=== PATIENT | female | born 2000 | race American Indian/Alaskan Native ===

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

== ENCOUNTER 2018-07-22 19:51 | Outpatient (CLI) | payer MEDICAID ==
[2018-07-22 20:44] VITALS: BP 124/72
[2018-07-22] MEDS ORDERED: LACTATED RINGERS 1,000 ML IV ONE (20:44)
[2018-07-22 22:02] LABS: Bilirubin,Urine NEG (Negative); Blood,Urine NEG (Negative); Color,Urine Yellow (Yellow); Mucus,Urine FEW /HPF; Protein,Urine <15 mg/dL mg/dL (Negative); Urobilinogen,Urine < 2.0 mg/dL (<2.0); WBC,Urine < 1.0 /HPF (0.0-6.0)
== END 2018-07-23 | disposition home or self-care (01) ==
LOC: TRG 19:51
PROVIDERS: ATTEND Obstetrics & Gynecology
DX: O26.893 Other specified pregnancy related conditions, third trimester (principal); R10.30 Lower abdominal pain, unspecified; O47.03 False labor before 37 completed weeks of gestation, third trimester; Z67.41 Type O blood, Rh negative; Z3A.36 36 weeks gestation of pregnancy
CPT/HCPCS: 59025; 81001; 86850; 86900; 86901; 96372; J2790; J7120

== ENCOUNTER 2018-08-12 12:52 | Inpatient (IN) | payer MEDICAID ==
[2018-08-12] MEDS ORDERED: BRETHINE IVP PRN (13:42)
[2018-08-12] MEDS ORDERED: MINERAL OIL PO PRN (13:42)
[2018-08-12] MEDS ORDERED: BRETHINE SUB-Q PRN (13:42)
[2018-08-12] MEDS ORDERED: STADOL IV PRN (13:42)
--- NOTE | 2018-08-12 13:42 | History and Physical Report ---
History of Present Illness Date of examination: 08/12/18 Date of admission: 08/12/18 13:11 Chief complaint: "Here for my injection" History of present illness: 18yo G 1 P 0 at 38 weeks 5 days here for penicillin injection that was ordered on 08/08/18. After review of the patient's records from [place] & consultation with Dr. Murdock adequate treatment was already done. She reports +FMs but denies UCs, VB or LOF. 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 She denies prodromal symptoms or any recent outbreak). Her care was co-managed with [facility] and [place]. 04/26/18: Pt seen at [place] and diagnosed with primary syphilis. She received one injection of Bacillin 2.4 million units IM at [facility] as recommended for primary syphilis. Initial titer on 02/28/18 was 1:32; repeat titer post treatment on 06/02/18 was 1:16 with +TPA. No subsequent titers done. 08/06/18: Pt seen at [facility] - EFW 2311g at 2% (IUGR), STACEY 9.82cm, BPP 8/8, Placenta Grade 1. S/D ratio 2.16. IOL @ 38-39 wks recommended 08/08/18: Pt seen at [facility] - STACEY 6.75cm (borderline oligohydamnios), BPP 6/8 (-2 STACEY), S/D ratio 2.14 Labs: O neg, Antibody Screen neg, RI, HBsAg neg, HIV neg, , HSV2 +, MSAFP neg, Diabetes Screen 98, GC/CT/Trich on 07/13/18 neg, GBS neg. 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 denies: smoking, alcohol abuse, prescription drug abuse, IV drug use - Obstetrical History Expected Date of Delivery: 08/21/18 Actual Gestation: 38 Week(s) 6 Day(s) : 1 Para: 0 Hx # Term Pregnancies: 0 Number of Pregnancies: 0 Spontaneous Abortions: 0 Induced : 0 Number of Living Children: 0 Medications and Allergies Allergies Allergy/AdvReac Type Severity Reaction Status Date / Time latex Allergy Severe Hives Verified 08/12/18 13:27 Home Medications Medication Instructions Recorded Confirmed Last Taken Type Cyclobenzaprine HCl [Flexeril 5 MG 5 mg PO TID #14 tablet 07/13/15 Unknown Rx TAB] Ibuprofen [Motrin] 600 mg PO Q8H PRN #30 tablet 07/13/15 Unknown Rx traMADol [Ultram 50 MG tab] 50 mg PO Q6HR PRN #14 tablet 07/16/16 Unknown Rx Acetaminophen [Tylenol] 325 mg PO Q6H #30 capsule 12/24/17 Unknown Rx Doxylamine Succinate/Vit B6 2 each PO QHS #30 tablet. 12/24/17 Unknown Rx [Diclegis 10-10 mg Tablet] Pnv No.95/Ferrous Fum/Folic AC 1 each PO DAILY #40 tablet 12/24/17 Unknown Rx [ Vitamin Tablet] Review of Systems All systems: negative - Vital Signs Vital signs: Vital Signs Temp Pulse Resp BP 96.7 F L 81 20 116/70 08/12/18 13:27 08/12/18 13:27 08/12/18 13:27 08/12/18 13:27 Temp Pulse Resp BP Pulse Ox 96.7 F L 81 20 116/70 08/12/18 13:27 08/12/18 13:28 08/12/18 13:27 08/12/18 13:28 - Physical Exam Abdomen: Positive: normal appearance, soft Genitourinary (Female): Positive: normal external genitalia, normal perenium. Negative: perineal/vulvar lesions Vulva: both: normal Vagina: Positive: normal moisture - Obstetrical FHR: auscultation normal, category 1 Uterine Contraction Monitor Mode: External Cervical Dilatation: 0.5 Cervical Effacement Percentage: 20 station: -3 Uterine Contraction Pattern: Irregular Results Result Diagrams: 08/12/18 14:10 All other labs normal. Assessment and Plan - Patient Problems (1) 38 weeks gestation of Current Visit: Yes Status: Acute (2) Intrauterine growth restriction (IUGR) affecting care of mother, third trimester, single gestation Current Visit: Yes Status: Acute Plan to address problem: Last growth scan 08/06: EFW 2311 g, 2% (3) Oligohydramnios in third trimester Current Visit: Yes Status: Acute Qualifiers: Fetus number: single or unspecified fetus Qualified Code(s): O41.03X0 - Oligohydramnios, third trimester, not applicable or unspecified Plan to address problem: Last STACEY on 08/08 was 6.75 cm (4) History of maternal syphilis, currently Current Visit: Yes Status: Acute Plan to address problem: s/p treatment with Bacillin 2.4 million units IM x1 RPR, NICU Consult ordered (5) Rh negative status during Current Visit: Yes Status: Acute Qualifiers: Trimester: third trimester Qualified Code(s): O26.893 - Other specified related conditions, third trimester; Z67.91 - Unspecified blood type, Rh negative Plan to address problem: s/p Rhogam Injection Repeat Rhogam injection PP (6) Encounter for induction of labor Current Visit: Yes Status: Acute Plan to address problem: Admit to L&D with routine labor orders Cervidil for cervical ripening Plan of care discussed with Dr. Murdock Anticipate vaginal delivery
[2018-08-12] MEDS ORDERED: PITOCin/NS 20 UNIT/1000ML DRIP 20 UNITS/1,000 ML BAG IV SCH (14:00)
[2018-08-12] MEDS ORDERED: XYLOCAINE 2% INFILTRATI ONE (14:00)
[2018-08-12] MEDS: LACTATED RINGERS 1,000 ML IV SCH (14:15)
[2018-08-12 14:24] LABS: Hematocrit 36.9 % (30.3-42.9); Hemoglobin 12.4 gm/dl (10.1-14.3); Mean Corpuscular HGB Conc 34 % (30-34); Mean Corpuscular Volume 93 fl (79-97); Platelet Count 273 K/mm3 (140-440); Red Blood Count 3.98 M/mm3 (3.65-5.03)
[2018-08-12] MEDS ORDERED: CERVIDIL VG ONE (14:42)
[2018-08-12] MEDS ORDERED: REGLAN IV ONE (18:19)
--- NOTE | 2018-08-12 18:30 | Consultation ---
Consult Note - Parent Education I met with parent(s) and discussed the following:: Need for NICU admission, Poss ible need for umbilical lines Parent(s) demonstrated understanding of all the information:: Yes Additional Comment: Met with mother at the request of OB team. Mother was recently diagnosed with Syphillis and got 1 dose of Penicillin in April/May and is getting her 2nd dose today. I explained to mother that baby needed to be admitted to the NICU for evaluation and treatment. Baby will get bloodwork and a spinal tap and then 10 days of IV penicillin (May need a UVC). Mother understands and is in agreement with plan of care. Assessment and Plan - Assessment Gestation:: 38 (IOL) Baby's gender: Female Baby's name: Wilner Barrett - Plan Plan: Admit baby to NICU after delivery Will send CBCd, RPR and CSF for protein, cell count and VDRL Please call NICU with questions
--- NOTE | 2018-08-13 09:10 | Progress Note ---
Assessment and Plan - Patient Problems (1) Encounter for induction of labor Current Visit: Yes Status: Acute Plan to address problem: Continue routine labor orders Initiate cytotec 25 mcg q 4 hrs vaginal as tolerated Pain meds as desired (2) Intrauterine growth restriction (IUGR) affecting care of mother, third trimester, single gestation Current Visit: Yes Status: Acute (3) Oligohydramnios in third trimester Current Visit: Yes Status: Acute Qualifiers: Fetus number: single or unspecified fetus Qualified Code(s): O41.03X0 - Oligohydramnios, third trimester, not applicable or unspecified (4) Rh negative status during Current Visit: Yes Status: Acute Qualifiers: Trimester: third trimester Qualified Code(s): O26.893 - Other specified related conditions, third trimester; Z67.91 - Unspecified blood type, Rh negative Subjective - Subjective Date of service: 08/13/18 (902) Principal diagnosis: IOL secondary to IUGR; Oligohydramnious Interval history: See admission H & P and OB progress notes Patient reports: movement normal, other (Just took shower and ate bkft, feeling well) Objective - Vital Signs Vital Signs: Vital Signs - 12hr 08/12/18 08/12/18 08/12/18 21:18 23:24 23:38 Temperature 98.3 F Pulse Rate 77 64 Respiratory 18 Rate Blood Pressure 125/72 135/76 08/13/18 08/13/18 08/13/18 03:03 04:29 07:41 Temperature Pulse Rate 60 94 H 75 Respiratory Rate Blood Pressure 134/76 126/79 126/65 08/13/18 07:58 Temperature 98.4 F Pulse Rate Respiratory 16 Rate Blood Pressure - Exam Breasts: deferred Cardiovascular: Regular rate Lungs: Normal air movement Abdomen: Present: other (gravid) Uterus: Present: other (S<D) FHR: category 1 Uterine Contraction Monitor Mode: External Cervical Dilatation: 0 (soft) Uterine Contraction Pattern: Irregular Uterine Tone Measurement Phase: Resting Extremities: normal Deep Tendon Reflex Grade: Normal +2 - Labs Labs: Laboratory Results - last 24 hr 08/12/18 08/12/18 14:10 14:10 WBC 8.0 RBC 3.98 Hgb 12.4 Hct 36.9 MCV 93 MCH 31 MCHC 34 RDW 14.0 Plt Count 273 Blood Type O NEGATIVE Antibody Screen Positive Antibody Identification Anti-D (Passively Aquired)
[2018-08-13] MEDS: CYTOTEC VG PRN (09:30)
[2018-08-13] MEDS ORDERED: CERVIDIL VG ONE (14:06)
[2018-08-13] MEDS: LACTATED RINGERS 1,000 ML IV SCH (17:39)
--- NOTE | 2018-08-13 19:00 | Progress Note ---
Assessment and Plan - Patient Problems (1) Encounter for induction of labor Current Visit: Yes Status: Acute Plan to address problem: Continue routine labor orders Cytotec d/c after one dose, cervix remained closed Second cervidil was placed at 1500, remove after 12 hrs Pain meds as desired (2) Intrauterine growth restriction (IUGR) affecting care of mother, third trimester, single gestation Current Visit: Yes Status: Acute (3) Oligohydramnios in third trimester Current Visit: Yes Status: Acute Qualifiers: Fetus number: single or unspecified fetus Qualified Code(s): O41.03X0 - Oligohydramnios, third trimester, not applicable or unspecified (4) Rh negative status during Current Visit: Yes Status: Acute Qualifiers: Trimester: third trimester Qualified Code(s): O26.893 - Other specified related conditions, third trimester; Z67.91 - Unspecified blood type, Rh negative Subjective - Subjective Date of service: 08/13/18 Principal diagnosis: IOL secondary to IUGR; Oligohydramnious Interval history: See admission H & P and OB progress notes Patient reports: movement normal, other (Resting quietly, reports irregular ctxs that are tolerable) Objective - Vital Signs Vital Signs: Vital Signs - 12hr 08/13/18 08/13/18 08/13/18 07:41 07:58 11:38 Temperature 98.4 F Pulse Rate 75 79 Respiratory 16 Rate Blood Pressure 126/65 110/55 Blood Pressure [Right] 08/13/18 08/13/18 12:00 15:46 Temperature 97.8 F 97.7 F Pulse Rate 88 Respiratory 16 20 Rate Blood Pressure 111/72 Blood Pressure 111/72 [Right] - Exam Breasts: deferred Cardiovascular: Regular rate Lungs: Normal air movement Abdomen: Present: other (gravid) FHR: category 1 Uterine Contraction Monitor Mode: External Uterine Contraction Pattern: Irregular Uterine Tone Measurement Phase: Resting Uterine Contraction Intensity: Mild (Second cervidil in place since 1500) Extremities: normal Deep Tendon Reflex Grade: Normal +2 - Labs Labs: Laboratory Results - last 24 hr 08/12/18 14:10 RPR Titer 1:8 RPR Reactive
[2018-08-14] MEDS: LACTATED RINGERS 1,000 ML IV SCH ×2 (08:20→17:31)
[2018-08-14] MEDS: CYTOTEC VG PRN (10:10)
--- NOTE | 2018-08-14 10:17 | Progress Note ---
Assessment and Plan A: IUP @ 39 1/7 Weeks IUGR Oligo +RPR Category I Tracing GBS Negative P: Cytotec 25mcg intravaginally Subjective - Subjective Date of service: 08/14/18 Principal diagnosis: IOL secondary to IUGR; Oligohydramnious Patient reports: movement normal, other (Resting quietly, reports irregular ctxs that are tolerable) Objective - Vital Signs Vital Signs: Vital Signs - 12hr 08/14/18 08/14/18 08/14/18 04:59 07:34 07:36 Temperature 98.3 F Pulse Rate 86 91 H Respiratory 16 Rate Blood Pressure 127/61 132/58 08/14/18 08/14/18 08/14/18 08:00 09:00 10:09 Temperature Pulse Rate 81 64 75 Respiratory Rate Blood Pressure 116/65 114/59 123/76 - Exam Breasts: normal Cardiovascular: Regular rate Abdomen: Present: normal appearance FHR: category 1 Uterine Contraction Monitor Mode: External Cervical Dilatation: 0 Uterine Contraction Pattern: Absent Uterine Tone Measurement Phase: Resting - Labs Labs: Laboratory Results - last 24 hr 08/12/18 14:10 RPR Titer 1:8 RPR Reactive
[2018-08-14] MEDS ORDERED: PITOCin/NS 30 UNIT/500ML 30,000 MILLIUNITS/500 ML BAG IV ONE (14:06)
[2018-08-14] MEDS: SUBLIMAZE IV PRN ×2 (14:08→18:40)
--- NOTE | 2018-08-14 14:08 | Progress Note ---
Assessment and Plan A: IUP @ 39 1/7 Weeks IUGR Oligo +RPR Category I Tracing GBS Negative P: Start low dose Pitocin Subjective - Subjective Date of service: 08/14/18 Principal diagnosis: IOL secondary to IUGR; Oligohydramnious Patient reports: vaginal bleeding, movement normal, other (Resting quietly) Objective - Vital Signs Vital Signs: Vital Signs - 12hr 08/14/18 08/14/18 08/14/18 04:59 07:34 07:36 Temperature 98.3 F Pulse Rate 86 91 H Respiratory 16 Rate Blood Pressure 127/61 132/58 08/14/18 08/14/18 08/14/18 08:00 09:00 10:09 Temperature Pulse Rate 81 64 75 Respiratory Rate Blood Pressure 116/65 114/59 123/76 08/14/18 11:01 Temperature Pulse Rate 65 Respiratory Rate Blood Pressure 117/55 - Exam Breasts: normal Cardiovascular: Regular rate Lungs: Clear to auscultation, Normal air movement Abdomen: Present: normal appearance, soft, normal bowel sounds Uterus: Present: normal, firm, fundal height above umbilicus FHR: category 1 Uterine Contraction Monitor Mode: External Cervical Dilatation: 1 (VTX, Intact) Cervical Effacement Percentage: 20 station: -3 Uterine Contraction Pattern: Irregular Uterine Tone Measurement Phase: Resting Uterine Contraction Intensity: Mild Extremities: normal - Labs Labs: Laboratory Results - last 24 hr 08/12/18 14:10 RPR Titer 1:8 RPR Reactive
[2018-08-14] MEDS ORDERED: PITOCin/NS 30 UNIT/500ML 30 UNITS/500 ML BAG IV SCH (15:00)
[2018-08-14] MEDS ORDERED: NACL 0.9% 1000 ML 1,000 ML ONE (15:18)
[2018-08-14] MEDS ORDERED: MORPHINE ONE (17:06)
[2018-08-14] MEDS ORDERED: NARCAN 2 MG/2 ML IV PRN (21:18)
--- NOTE | 2018-08-14 21:18 | Anesthesia Consultation ---
Anesthesia Consult and Med Hx Date of service: 08/14/18 - Airway Anesthetic Teeth Evaluation: Good ROM Head & Neck: Adequate Mental/Hyoid Distance: Adequate Mallampati Class: Class II Intubation Access Assessment: Probably Good - Pulmonary Exam CTA: Yes - Cardiac Exam Cardiac Exam: RRR - Pre-Operative Health Status ASA Pre-Surgery Classification: ASA2 Proposed Anesthetic Plan: Epidural - Pulmonary Hx Smoking: No Hx Asthma: No Hx Respiratory Symptoms: No SOB: No COPD: No Home Oxygen Therapy: No Hx Pneumonia: No Hx Sleep Apnea: No - Cardiovascular System Hx Hypertension: No Hx Coronary Artery Disease: No Hx Heart Attack/AMI: No Hx Angina: No Hx Percutaneous Transluminal Coronary Angioplasty (PTCA): No Hx Cardia Arrhythmia: No Hx Pacemaker: No Hx Internal Defibrillator: No Hx Valvular Heart Disease: No Hx Heart Murmur: No Hx Peripheral Vascular Disease: No - Central Nervous System Hx Neuromuscular Disorder: No Hx Seizures: No CVA: No Hx Back Pain: No Hx Psychiatric Problems: No - Gastrointestinal Hx Ulcer: No Hx Gastroesophageal Reflux Disease: Yes - Endocrine Hx Renal Disease: No Hx End Stage Renal Disease: No Hx Cirrhosis: No Hx Liver Disease: No Hx Insulin Dependent Diabetes: No Hx Non-Insulin Dependent Diabetes: No Hx Thyroid Disease: No Hx Hypothyroidism: No Hx Hyperthyroidism: No - Hematic Hx Anemia: No Hx Sickle Cell Disease: No - Other Systems Hx Alcohol Use: No Hx Substance Use: No Hx Cancer: No Hx Obesity: No
[2018-08-14] MEDS ORDERED: fentaNYL-BUPIV 2 MCG/ML-0.125% 200 MCG/100 ML BAG EPIDURAL SCH (22:00)
[2018-08-15] MEDS ORDERED: BICITRA PO ONE (01:14)
[2018-08-15] MEDS ORDERED: REGLAN IV ONE (01:14)
[2018-08-15] MEDS ORDERED: PEPCID IV ONE (01:14)
[2018-08-15] MEDS ORDERED: ANCEF/STERILE WATER 2 GM/20 ML 2 GM/20 ML SYRINGE IV NR (02:00)
[2018-08-15] MEDS ORDERED: PITOCin/NS 20 UNIT/1000ML DRIP 20 UNITS/1,000 ML BAG IV SCH ×2 (02:00→04:00)
[2018-08-15] MEDS ORDERED: MARCAINE 0.5% INFILTRATI ONE (02:07)
[2018-08-15] MEDS ORDERED: NACL 0.9% IR ONE (02:08)
[2018-08-15] MEDS ORDERED: WATER FOR IRRIG STERILE IR ONE (02:08)
[2018-08-15] MEDS ORDERED: SUBLIMAZE ONE ×2 (02:12→02:29)
--- NOTE | 2018-08-15 02:17 | Progress Note ---
Assessment and Plan - Patient Problems (1) 39 weeks gestation of Current Visit: Yes Status: Acute (2) Intrauterine growth restriction (IUGR) affecting care of mother, third trimester, single gestation Current Visit: Yes Status: Acute (3) Oligohydramnios in third trimester Current Visit: Yes Status: Acute Qualifiers: Fetus number: single or unspecified fetus Qualified Code(s): O41.03X0 - Oligohydramnios, third trimester, not applicable or unspecified (4) Syphilis affecting Current Visit: Yes Status: Acute (5) Obesity Current Visit: Yes Status: Acute Qualifiers: Obesity type: due to excess calories (6) Rh negative status during Current Visit: Yes Status: Acute Qualifiers: Trimester: third trimester Qualified Code(s): O26.893 - Other specified related conditions, third trimester; Z67.91 - Unspecified blood type, Rh negative Plan to address problem: For rhogam. (7) Non-reassuring electronic monitoring tracing Current Visit: Yes Status: Acute Plan to address problem: Pitocin discontinued. IV bolus and O2 via face mask given. I counselled the patient for C/section. Risks and benefits of the procedure were discussed with her such as infection, hemorrhage requiring blood transfusion, injury to the bowel, bladder and blood vessels. She expressed understanding, her questions were answered, she gave her informed consent. Keep NPO. Anesthesia has been notified. Epidural in place. Subjective - Subjective Date of service: 08/15/18 Principal diagnosis: SIUP at 39 weeks and 1 day, IUGR, oligo, nonreassuring tracing Interval history: Patient is a 18 year old , EDC 08/21/18 at 39 weeks and 1 days gestation who was admitted on 08/12/18 for labor induction for IUGR and decreased STACEY. She was given cervidil followed by pitocin yesterday. She has been charlene every 2-3 minutes. She had an epidural for pain. Her cervix has been 1 cm/50% since 2 PM yesterday. She has not made any further cervical changes. 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 She was found to have decreasing STACEY from 9 to 6.7 last week and grow restriction in the second percentile. I was called by the nurse after 1 AM to assess the patient for recurrent variables on the tracing. I found lying comfortably in bed. [place]: Q2 mins. Tracing showed some [id number] variability and occasional mild variables. No late decelerations were seen. Patient reports: vaginal bleeding, movement normal, other (Resting quietly) Objective - Vital Signs Vital Signs: Vital Signs - 12hr 08/14/18 08/14/18 08/14/18 17:08 21:31 21:32 Pulse Rate 63 83 78 Blood Pressure 138/81 O2 Sat by Pulse 56 L 100 Oximetry 08/14/18 08/14/18 08/14/18 21:37 21:42 21:45 Pulse Rate 76 74 83 Blood Pressure 146/74 O2 Sat by Pulse 100 100 Oximetry 08/14/18 08/14/18 08/14/18 21:47 21:48 21:52 Pulse Rate 70 71 69 Blood Pressure 127/61 O2 Sat by Pulse 100 100 Oximetry 08/14/18 08/14/18 08/14/18 21:57 22:00 22:02 Pulse Rate 68 71 68 Blood Pressure O2 Sat by Pulse 100 90 98 Oximetry 08/14/18 08/14/18 08/14/18 22:04 22:07 22:12 Pulse Rate 78 68 69 Blood Pressure 123/66 O2 Sat by Pulse 100 100 Oximetry 08/14/18 08/14/18 08/14/18 22:17 22:18 22:22 Pulse Rate 25 L 75 68 Blood Pressure 121/59 O2 Sat by Pulse 69 L 100 Oximetry 08/14/18 08/14/18 08/14/18 22:23 22:27 22:32 Pulse Rate 75 74 69 Blood Pressure O2 Sat by Pulse 83 L 100 100 Oximetry 08/14/18 08/14/18 08/14/18 22:33 22:34 22:37 Pulse Rate 69 71 66 Blood Pressure 129/78 O2 Sat by Pulse 84 100 Oximetry 08/14/18 08/14/18 08/14/18 22:42 22:47 22:48 Pulse Rate 66 70 68 Blood Pressure 145/82 O2 Sat by Pulse 100 100 Oximetry 08/14/18 08/14/18 08/14/18 22:52 22:55 22:57 Pulse Rate 68 62 65 Blood Pressure O2 Sat by Pulse 100 79 L 100 Oximetry 08/14/18 08/14/18 08/14/18 23:00 23:02 23:05 Pulse Rate 72 89 74 Blood Pressure O2 Sat by Pulse 88 100 91 Oximetry 08/14/18 08/14/18 08/14/18 23:07 23:13 23:17 Pulse Rate 75 78 80 Blood Pressure 139/81 O2 Sat by Pulse 100 100 Oximetry 08/14/18 08/14/18 08/14/18 23:18 23:23 23:28 Pulse Rate 77 76 74 Blood Pressure O2 Sat by Pulse 100 100 100 Oximetry 08/14/18 08/14/18 08/14/18 23:32 23:33 23:38 Pulse Rate 74 74 78 Blood Pressure 131/74 O2 Sat by Pulse 100 100 Oximetry 08/14/18 08/14/18 08/14/18 23:43 23:47 23:48 Pulse Rate 92 H 75 76 Blood Pressure 128/69 O2 Sat by Pulse 100 100 Oximetry 08/14/18 08/14/18 08/15/18 23:53 23:58 00:02 Pulse Rate 72 70 77 Blood Pressure 121/75 O2 Sat by Pulse 100 99 Oximetry 08/15/18 08/15/18 08/15/18 00:03 00:08 00:13 Pulse Rate 80 83 86 Blood Pressure O2 Sat by Pulse 99 100 100 Oximetry 08/15/18 08/15/18 08/15/18 00:18 00:23 00:28 Pulse Rate 82 75 87 Blood Pressure 119/76 O2 Sat by Pulse 100 100 100 Oximetry 08/15/18 08/15/18 08/15/18 00:33 00:34 00:38 Pulse Rate 81 83 80 Blood Pressure 129/64 O2 Sat by Pulse 100 100 Oximetry 08/15/18 08/15/18 08/15/18 00:43 00:48 00:53 Pulse Rate 81 68 77 Blood Pressure 126/67 O2 Sat by Pulse 100 95 100 Oximetry 08/15/18 08/15/18 08/15/18 00:58 01:02 01:03 Pulse Rate 71 77 82 Blood Pressure 127/73 O2 Sat by Pulse 100 100 Oximetry 08/15/18 08/15/18 01:08 01:13 Pulse Rate 88 79 Blood Pressure O2 Sat by Pulse 100 100 Oximetry - Exam Cardiovascular: Normal S1, Normal S2 Vulva: both: normal FHR: category 2 Uterine Contraction Monitor Mode: External Cervical Dilatation: 1 Cervical Effacement Percentage: 50 station: -2 Uterine Contraction Pattern: Regular Uterine Contraction Intensity: Strong/Firm Deep Tendon Reflex Grade: Normal +2 - Results US- obstetric: report reviewed
[2018-08-15] MEDS ORDERED: XYLOCAINE MPF 2% ONE ×3 (02:19→02:39)
[2018-08-15] MEDS ORDERED: LACTATED RINGERS 1,000 ML ONE (02:24)
[2018-08-15] MEDS ORDERED: DIPRIVAN 10 MG/ML IV ONE (02:41)
[2018-08-15] MEDS ORDERED: QUELICIN ONE (02:42)
[2018-08-15] MEDS ORDERED: TORADOL ONE (02:51)
[2018-08-15] MEDS ORDERED: ROBINUL ONE (02:51)
[2018-08-15] MEDS ORDERED: SODIUM BICARBONATE IV ONE (02:54)
[2018-08-15] MEDS ORDERED: ZOFRAN ONE (03:08)
[2018-08-15] MEDS ORDERED: MYLICON PO PRN (03:25)
[2018-08-15] MEDS ORDERED: SENOKOT PO PRN (03:25)
[2018-08-15] MEDS ORDERED: ZOFRAN IV PRN (03:25)
[2018-08-15] MEDS ORDERED: TUCKS PAD TP PRN (03:25)
[2018-08-15] MEDS ORDERED: MILK OF MAGNESIA PO PRN (03:25)
[2018-08-15] MEDS ORDERED: ANUCORT-HC PR PRN (03:25)
[2018-08-15] MEDS ORDERED: LANSINOH TP PRN (03:25)
[2018-08-15] MEDS ORDERED: TORADOL IV PRN ×2 (03:25)
[2018-08-15] MEDS ORDERED: TYLENOL PO PRN (03:25)
[2018-08-15] MEDS ORDERED: PHENERGAN PR PRN (03:25)
[2018-08-15] MEDS ORDERED: NARCAN 0.4 MG/1 ML IV PRN (03:25)
[2018-08-15] MEDS ORDERED: MORPHINE IV PRN ×2 (03:25)
--- NOTE | 2018-08-15 03:54 | 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 ---
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: Preoperative diagnosis 1. SIUP at 39 weeks and 1 day gestation in active labor. 2. Nonreassuring tracing. 3. Oligohydramnios. 4. IUGR. 5. Primary syphillis. Postoperative diagnosis: Same. Procedure: Primary low-transverse section. Surgeon: Dr. Murdock Interior Horticulturist: none Anesthesia: epidural converted to general endotracheal. IVF: RL 1 liter EBL: 400 cc Urine: 200 cc clear Complications: none Intraoperative findings: 1. A female infant found in an MINOO position, tight nuchal cord 2 with compression, delivered at 2:47 AM, Apgars 2 at at 1 minute, 4 at 5 minutes, 5 at 8 mins and 9 at 10 minutes, weight 5 lbs. 3 oz. 2. Normal fallopian tubes and ovaries bilaterally. Procedure details: Risks, benefits, and alternatives of the procedure were discussed in detail with the patient which included but not limited to the risk of infection, hemorrhage requiring blood transfusion, injury to the bowel or bladder and blood vessels. The patient expressed understanding, her questions were answered, and she gave informed consent. The patient was taken to the operating room with an IV fluid infusing Ringers lactate. In the operating room, she was placed in a dorsal supine position with a leftward tilt. She was loaded with epidural anesthesia. Lugo catheter in Venodyne boots were placed. The abdomen was washed and she was prepared and draped in usual sterile fashion. Upon testing the skin, the epidural anesthesia was not working properly and patient felt pain after 10-15 minutes of testing. Therefore, she was given general anesthesia. After the airway was secured, a Pfannenstiel skin incision was made in the lower abdomen about 2 cm above the pubic symphysis using the scalpel. This incision was carried down to the underlying fascia using the Bovie. The fascia was opened bilaterally in a curvilinear fashion using the Bovie. 2 straight Kocker clamps were used to gra sp the upper edge of the fascia from which the underlying rectus abdominis muscles was dissected off using the Bovie. A similar procedure was done with the lower edge of the fascia to dissect the underlying rectus abdominis muscle. The muscle was bluntly from the midline by pulling. The parietal peritoneum was grasped with 2 hemostat clamps and entered sharply using Metzenbaum scissors. A quick survey of the anatomy revealed a gravid uterus, normal fallopian tubes and ovaries bilaterally. A bladder flap was created. Redd'O retractor was placed in the incision for proper visualization. A low transverse incision was made in the lower uterine segment using the scalpel and extended bilaterally in a curvilinear fashion using bandage scissors. There was scant amount of clear amniotic fluid. The infant was found in an MINOO position, the head was delivered atraumatically followed by the delivery of the shoulders and the rest of the body at 2:47 AM. There was tight nuchal cord 2 with compression. The cord was clamped 2 and cut and the was handed off to the waiting international manager. The was a female, Apgars were 2 at 1 minute, 4 at 5 mins, 5 at 8 mins, and 9 at 5 minutes, weight was 5 pounds and 3 ounces. Cord gas was sent and cord blood was collected. The placenta was delivered manually and it was complete with a three-vessel cord. The uterine cavity was cleaned of clots and debris using dry lap sponges. The uterine incision was repaired in a running locked fashion using 0 Vicryl sutures. A second layer of imbrication was placed. The gutters were cleaned of clots and debris using dry lap sponges. After confirming adequate hemostasis, the instruments were removed from the abdominal cavity. The rectus muscle was reapproximated in an inter rupted fashion using 0 Vicryl sutures. The fascia was closed in a running fashion using 0 Vicryl sutures. The subcutaneous adipose layer was closed with 2 chromic sutures. The skin was closed with tg. Sterile dressing was placed. The counts of laps, needles, sponges, and instruments were correct 2. The patient tolerated the procedure well, she was taken to the recovery room in a stable condition.
[2018-08-15] MEDS ORDERED: SODIUM CHLORIDE FLUSH SYRINGE 10 ML IV PRN (04:00)
--- NOTE | 2018-08-15 08:15 | Post Anesthesia Evaluation ---
- Post Anesthesia Evaluation Patient Participated: Yes Airway Patent: Yes Stable Respiratory Function: Yes Nausea/Vomiting: No Temp > 96.8F: Yes Pain Manageable: Yes Adequeate Hydration: Yes Anesthesia Complications: No Block Receding Appropriately: Yes Patient on Ventilator: No
--- NOTE | 2018-08-15 08:16 | Anesthesia Day of Surgery ---
Anesthesia Day of Surgery - Day of Surgery Patient Examined: Yes Patient H&P Reviewed: Yes Patient is NPO: Yes Beta Blockers: No Cardiac Clearance: No Pulmonary Clearance: No Esvin's Test: N/A
[2018-08-15] MEDS: LACTATED RINGERS 1,000 ML IV SCH (08:18)
[2018-08-15] MEDS: PRENATAL VITAMIN PO SCH (10:20)
[2018-08-15] MEDS: FEOSOL PO SCH (10:20)
[2018-08-15] MEDS: IBUPROFEN PO PRN ×3 (10:20→22:00)
[2018-08-15] MEDS: PERCOCET 5/325 PO PRN ×3 (10:21→22:00)
[2018-08-15] MEDS: ANCEF/NS 1 GM/50 ML 1 GM/50 ML BAG IV SCH ×2 (11:54→21:16)
[2018-08-15 15:05] LABS: Hematocrit 35.1 % (30.3-42.9); Hemoglobin 11.7 gm/dl (10.1-14.3)
[2018-08-16] MEDS: IBUPROFEN PO PRN ×4 (03:02→22:41)
[2018-08-16] MEDS: PERCOCET 5/325 PO PRN ×4 (03:02→22:40)
--- NOTE | 2018-08-16 09:03 | Progress Note ---
Assessment and Plan - Patient Problems (1) S/P primary low transverse Current Visit: Yes Status: Acute Plan to address problem: POD 1 - poor pain control Continue routine postop orders Ambulation encouraged, as tolerated Abdominal binder prn Anticipate discharge in 48 hours (2) Uncontrolled pain Current Visit: Yes Status: Acute Plan to address problem: Percocet increased to 2 tabs q6hr prn for pain (3) Rh negative status during Current Visit: Yes Status: Acute Qualifiers: Trimester: third trimester Qualified Code(s): O26.893 - Other specified related conditions, third trimester; Z67.91 - Unspecified blood type, Rh negative Plan to address problem: Rhogam administered Subjective - Subjective Date of service: 08/16/18 Principal diagnosis: POD #1; s/p Primary LTCS Interval history: 18yo G 1 P 0 at 38 weeks 5 days here for penicillin injection that was ordered on 08/08/18. After review of the patient's records from [place] & consultation with Dr. Murdock adequate treatment was already done. She reports +FMs but denies UCs, VB or LOF. 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 She denies prodromal symptoms or any recent outbreak). Her care was co-managed with [facility] and [facility]. 04/26/18: Pt seen at [facility] and diagnosed with primary syphilis. She received one injection of Bacillin 2.4 million units IM at [facility] [place] as recommended for primary syphilis. Initial titer on 02/28/18 was 1:32; repeat titer post treatment on 06/02/18 was 1:16 with +TPA. No subsequent titers done. 08/06/18: Pt seen at [facility] - [facility] 2311g at 2% (IUGR), STACEY 9.82cm, BPP 8/8, Placenta Grade 1. S/D ratio 2.16. IOL @ 38-39 wks recommended 08/08/18: Pt seen at [facility] - STACEY 6.75cm (borderline oligohydamnios), BPP 6/8 (-2 STACEY), S/D ratio 2.14 Labs: O neg, Antibody Screen neg, RI, HBsAg neg, HIV neg, , HSV2 +, MSAFP neg, Diabetes Screen 98, GC/CT/Trich on 07/13/18 neg, GBS neg. Patient reports: appetite normal, voiding normally, flatus, bowel movement, pain poorly controlled, ambulating normally, no dizzy ambulation (on Percocet 1 tab q6hr prn & Motrin) [place]: doing well, in NICU Objective - Vital Signs Latest vital signs: Vital Signs Temp Pulse Resp BP BP Pulse Ox 08/16/18 07:10 98.2 F 60 18 128/70 08/16/18 00:30 98.2 F 73 20 132/91 100 08/15/18 21:26 98.9 F 75 20 126/73 99 08/15/18 15:23 98.3 F 71 16 145/83 98 08/15/18 11:28 98.3 F 81 16 116/64 95 Intake and Output 08/15/18 08/16/18 08/16/18 23:59 07:59 15:59 Intake Total 120 720 Output Total 2350 Balance -2230 720 Intake: Oral 120 360 Intake, Free Water 360 Output: Urine 2350 Indwelling Catheter 1300 Void 1050 Other: Total, Intake Amount 120 360 Total, Output Amount 300 # Voids Void 1 - Exam Cardiovascular: Present: Regular rate Lungs: Present: Clear to auscultation Abdomen: Present: normal appearance, soft Vulva: both: normal Uterus: Present: normal, firm, fundal height below umbilicus Extremities: Present: normal Incision: Present: normal, dry, intact, other (tg in place) Comments: small lochia
[2018-08-16] MEDS: FEOSOL PO SCH (09:12)
[2018-08-16] MEDS: PRENATAL VITAMIN PO SCH (09:12)
[2018-08-17] MEDS: PERCOCET 5/325 PO PRN ×3 (05:34→23:32)
[2018-08-17] MEDS: IBUPROFEN PO PRN ×3 (05:34→23:31)
[2018-08-17] MEDS: FEOSOL PO SCH (13:13)
[2018-08-17] MEDS: PRENATAL VITAMIN PO SCH (13:13)
--- NOTE | 2018-08-17 16:56 | Progress Note ---
Assessment and Plan A: /postop day 2 S/P primary low transverse section. P: Encouraged ambulation. Subjective - Subjective Date of service: 08/17/18 Principal diagnosis: POD #2; s/p Primary LTCS Interval history: /postop day 2 S/P primary low transverse section. Doing well. Passing gas. Tolerating a regular diet. Voiding without difficulty. Ambulating well. Patient denies headache, visual disturbance, nausea or vomiting, chest pain, shortness of breath, abdominal pain, leg pain, or heavy vaginal bleeding. Patient reports: appetite normal, voiding normally, pain well controlled, flatus, ambulating normally, no dizzy ambulation, no bowel movement, no nauseated : in NICU Objective - Vital Signs Latest vital signs: Vital Signs Temp Pulse Resp BP Pulse Ox 08/17/18 07:16 98.2 F 75 16 115/46 96 08/17/18 00:11 98.3 F 79 20 119/77 69 L Intake and Output 08/17/18 08/17/18 08/17/18 07:59 15:59 23:59 Intake Total 120 Balance 120 Intake: Oral 120 Other: Total, Intake Amount 120 # Voids Void 1 1 - Exam Cardiovascular: Present: Regular rate, Normal S1, Normal S2, No murmurs Lungs: Present: Clear to auscultation Abdomen: Present: normal appearance, soft, normal bowel sounds. Absent: distention, tenderness, guarding, rigidity Uterus: Present: normal, firm, fundal height below umbilicus. Absent: bogginess, tenderness Extremities: Present: normal. Absent: tenderness, edema Incision: Present: normal, dry, intact
[2018-08-18] MEDS: FEOSOL PO SCH ×2 (10:35→11:52)
[2018-08-18] MEDS: PRENATAL VITAMIN PO SCH (11:52)
[2018-08-18] MEDS: PERCOCET 5/325 PO PRN (11:56)
[2018-08-18] MEDS: IBUPROFEN PO PRN (11:56)
--- NOTE | 2018-08-18 13:39 | Progress Note ---
Assessment and Plan A: /postop day 3 S/P primary low transverse section. New heart murmur. Shortness of breath, fatigue, chest pain. P: Hospitalist consult. EKG, CXR. Subjective - Subjective Date of service: 08/18/18 Principal diagnosis: POD #3; s/p Primary LTCS Interval history: /postop day 3 S/P primary low transverse section. Doing well. Passing gas. Tolerating a regular diet. Voiding without difficulty. Ambulating well. Patient reports fatigue, chest pain, and shortness of breath when walking today. Rest improved symptoms somewhat. Patient denies cough, dizziness, headache, leg pain, abdominal pain, or heavy vaginal bleeding. Patient reports: appetite normal, voiding normally, pain well controlled, flatus, ambulating normally, no dizzy ambulation, no bowel movement, no nauseated : in NICU Objective - Vital Signs Latest vital signs: Vital Signs Temp Pulse Resp BP Pulse Ox 08/18/18 08:16 98.3 F 90 18 111/69 97 08/17/18 23:39 98.6 F 88 20 124/65 100 08/17/18 16:03 98.3 F 66 18 107/67 96 Intake and Output 08/17/18 08/18/18 08/18/18 23:59 07:59 15:59 Intake Total 840 240 Balance 840 240 Intake: Oral 120 240 Intake, Free Water 720 Other: Total, Intake Amount 120 240 # Voids Void 2 1 - Exam Cardiovascular: Present: Regular rate, Normal S1, Normal S2, Other (murmur heard) Lungs: Present: Clear to auscultation Abdomen: Present: normal appearance, soft, normal bowel sounds. Absent: distention, tenderness, guarding, rigidity Uterus: Present: normal, firm, fundal height below umbilicus. Absent: bogginess, tenderness Extremities: Present: normal. Absent: tenderness Incision: Present: normal, dry, intact
--- NOTE | 2018-08-18 15:24 | XRay Report ---
PROCEDURE: XR CHEST ROUTINE 2V TECHNIQUE: Chest, PA and lateral HISTORY: SOB COMPARISON: 11/10/2016 FINDINGS: The heart size is normal. There is no pulmonary vascular congestion seen. Mediastinal contours are normal. Lungs are clear. There is no pleural effusion seen. There is no pneumothorax seen. IMPRESSION: No acute abnormality identified. This document is electronically signed by Brenda Sabillon MD., August 18 2018 03:22:19 PM ET
--- NOTE | 2018-08-18 20:19 | Consultation ---
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 Consult placed for Shortness of Breath, Fatigue, and heart Murmur. Pt seen and evaluated in her room at 2030 hrs. Pt denies fever, chills,CP, shortness of breath, productive cough, nonproductive cough, leg swelling, calf pain, syncope, hemoptysis, or recent ill contacts. Pt denies any symptoms at time of exam. Pt vital signs revi ewed for the entire day without any abnormal findings. An erroneous pulse oximetry was transposed and entered. Pt in no respiratory distress. Pt status discussed with nurse. No nursing events. Past History Past Medical History: other (As per HPI) Social history: single, lives with family, full code. denies: smoking, alcohol abuse, prescription drug abuse, IV drug use Family history: diabetes, hypertension Medications and Allergies Allergies Allergy/AdvReac Type Severity Reaction Status Date / Time latex Allergy Severe Hives Verified 08/12/18 13:27 Home Medications Medication Instructions Recorded Confirmed Last Taken Type Cyclobenzaprine HCl [Flexeril 5 MG 5 mg PO TID #14 tablet 07/13/15 08/14/18 Unknown Rx TAB] Ibuprofen [Motrin] 600 mg PO Q8H PRN #30 tablet 07/13/15 08/14/18 Unknown Rx traMADol [Ultram 50 MG tab] 50 mg PO Q6HR PRN #14 tablet 07/16/16 08/14/18 Unknown Rx Acetaminophen [Tylenol] 325 mg PO Q6H #30 capsule 12/24/17 08/14/18 Unknown Rx Doxylamine Succinate/Vit B6 2 each PO QHS #30 tablet. 12/24/17 08/14/18 Unknown Rx [Nicky Mac 10-10 mg Tablet] Pnv No.95/Ferrous Fum/Folic AC 1 each PO DAILY #40 tablet 12/24/17 08/14/18 08/13/18 09:00 Rx [ Vitamin Tablet] Ibuprofen [Motrin] 800 mg PO Q8HR PRN #30 tablet 08/15/18 Unknown Rx oxyCODONE /ACETAMINOPHEN [Percocet 1 tab PO Q4HR #20 tab 08/15/18 Unknown Rx 5/325] Active Meds: Active Medications Acetaminophen (Tylenol) 650 mg PO Q4H PRN PRN Reason: Fever >100.5/HUBBARD Ephedrine Sulfate (Ephedrine Sulfate) 10 mg IV Q2M PRN PRN Reason: Hypotension Ferrous Sulfate (Feosol) 325 mg PO QDAY FÉLIX Last Admin: 08/18/18 11:52 Dose: 325 mg Documented by: Hydrocortisone Acetate (Anucort-Hc) 25 mg TX BID PRN PRN Reason: Hemorrhoids Lactated Ringer's (Lactated Ringers) 1,000 mls @ 125 mls/hr IV DIRECT FÉLIX Last Admin: 08/15/18 08:18 Dose: 125 mls/hr Documented by: Fentanyl/Bupivacaine/Sodium Chlor (Fentanyl-Bupiv 2 Mcg/Ml-0.125%) 200 mcg in 100 mls @ 12 mls/hr EPIDURAL TITR FÉLIX; Protocol Last Admin: 08/14/18 20:30 Dose: 12 mls/hr Documented by: Oxytocin/Sodium Chloride (Pitocin/Ns 20 Unit/1000ml Drip) 20 units in 1,000 mls @ 250 mls/hr IV DIRECT FÉLIX Last Admin: 08/15/18 04:07 Dose: 250 mls/hr Documented by: Ibuprofen (Ibuprofen) 800 mg PO Q6H PRN PRN Reason: Pain, Mild (1-3) Last Admin: 08/18/18 11:56 Dose: 800 mg Documented by: Ketorolac Tromethamine (Toradol) 15 mg IV Q6H PRN PRN Reason: Pain, Mild (1-3) Stop: 08/20/18 03:24 Ketorolac Tromethamine (Toradol) 30 mg IV Q6H PRN PRN Reason: Pain, Moderate (4-6) Stop: 08/20/18 03:24 Last Admin: 08/15/18 04:34 Dose: 30 mg Documented by: Magnesium Hydroxide (Milk Of Magnesia) 30 ml PO QHS PRN PRN Reason: Constip Unrelieved By Senna Morphine Sulfate (Morphine) 2 mg IV Q4H PRN PRN Reason: Pain, Moderate (4-6) Last Admin: 08/15/18 06:24 Dose: 2 mg Documented by: Morphine Sulfate (Morphine) 4 mg IV Q4H PRN PRN Reason: Pain , Severe (7-10) Multi-Ingredient Ointment (Lansinoh) 1 applic TP PRN PRN PRN Reason: dryness/cracking Multivitamins/Iron/Calcium ( Vitamin) 1 each PO QDAY FÉLIX Last Admin: 08/18/18 11:52 Dose: 1 each Documented by: Naloxone HCl (Narcan 0.4 Mg/1 Ml) 0.1 mg IV Q2MIN PRN PRN Reason: Res Rate </= 8 or 02 SAT < 92% Ondansetron HCl (Zofran) 4 mg IV Q8H PRN PRN Reason: Nausea And Vomiting Oxycodone/Acetaminophen (Percocet 5/325) 2 tab PO Q6H PRN PRN Reason: Pain, Moderate (4-6) Last Admin: 08/18/18 11:56 Dose: 1 tab Documented by: Promethazine HCl (Phenergan) 25 mg TX Q6H PRN PRN Reason: N/V IF NPO AND NO IV ACCESS Senna (Senokot) 17.2 mg PO QHS PRN PRN Reason: Constipation Simethicone (Mylicon) 80 mg PO Q6H PRN PRN Reason: Gas pain Sodium Chloride (Sodium Chloride Flush Syringe 10 Ml) 10 ml IV PRN PRN PRN Reason: LINE FLUSH Witch Swathi/Glycerin (Tucks Pad) 1 each TP PRN PRN PRN Reason: Hemorrhoids/cleansing/soothing Review of Systems Constitutional: no weight loss, no weight gain, no fever, no chills Ears, nose, mouth and throat: no ear pain, no ear discharge, no tinnitis, no nasal congestion, no nasal discharge Breasts: no change in shape, no swelling, no mass Cardiovascular: no chest pain, no orthopnea, no palpitations, no rapid/irregular heart beat, no edema, no syncope, no lightheadedness Respiratory: no cough, no cough with sputum, no excessive sputum, no hemoptysis, no shortness of breath, no dyspnea on exertion Gastrointestinal: no abdominal pain, no nausea, no vomiting, no diarrhea, no constipation, no BRBPR, no melena, no hematochezia, no loss of appetite, no early satiety Genitourinary Female: no pelvic pain, no flank pain, no menorrhagia, no dysuria, no urinary frequency Rectal: no pain, no incontinence, no bleeding Musculoskeletal: no neck stiffness, no neck pain, no shooting arm pain, no arm numbness/tingling, no low back pain, no shooting leg pain, no leg numbness/tingling Integumentary: no rash, no pruritis, no redness, no sores, no wounds Neurological: no paralysis, no weakness, no parathesias, no numbness, no tingling, no seizures, no syncope Psychiatric: no anxiety, no memory loss, no change in sleep habits, no sleep disturbances, no insomnia, no hypersomnia Endocrine: no cold intolerance, no heat intolerance, no polyphagia, no polydipsia, no polyuria, no nocturia, no excessive sweating, no flushing Hematologic/Lymphatic: no easy bruising, no easy bleeding, no lymphadenopathy, no lymphedema Allergic/Immunologic: no urticaria, no allergic rhinitis, no persistent infections, no angioedema Exam - Constitutional Vitals: Temp Pulse Resp BP Pulse Ox 98.3 F 90 18 111/69 97 08/18/18 08:16 08/18/18 08:16 08/18/18 08:16 08/18/18 08:16 08/18/18 08:16 General appearance: Present: no acute distress, well-nourished - EENT Eyes: Present: PERRL ENT: hearing intact, clear oral mucosa - Neck Neck: Present: supple, normal ROM - Respiratory Respiratory effort: normal Respiratory: bilateral: CTA - Cardiovascular Heart Sounds: Present: S1 & S2. Absent: rub, click - Extremities Extremities: pulses symmetrical, No edema Peripheral Pulses: within normal limits - Abdominal General gastrointestinal: Present: soft, non-tender, non-distended, normal bowel sounds, other (Incision: CDI) Female genitourinary: Present: normal - Integumentary Integumentary: Present: clear, warm, dry - Musculoskeletal Musculoskeletal: gait normal, strength equal bilaterally - Psychiatric Psychiatric: appropriate mood/affect, intact judgment & insight - Neurologic Neurologic: CNII-XII intact, moves all extremities Results - Labs CBC & Chem 7: 08/15/18 14:16 Assessment and Plan - Patient Problems (1) Shortness of breath Current Visit: Yes Status: Acute Plan to address problem: CXR Reviewed: Normal vital signs reviewed and found to be normal. Pt denies symptoms at time of exam. Pt ambulating indepentently. Pt resting comfortable in bed, talking on her cellular phone on room air. No significant physical exam findings.
[2018-08-19] MEDS: PERCOCET 5/325 PO PRN ×3 (00:20→15:11)
[2018-08-19] MEDS: IBUPROFEN PO PRN ×3 (00:21→15:12)
[2018-08-19] MEDS: FEOSOL PO SCH (09:42)
[2018-08-19] MEDS: PRENATAL VITAMIN PO SCH (09:42)
--- NOTE | 2018-08-19 11:56 | Progress Note ---
Assessment and Plan - Patient Problems (1) S/P primary low transverse Current Visit: Yes Status: Acute Plan to address problem: POD 4 - stable Discharge today 08/19/18 Follow up at [facility] on 08/23/18 for tg removal (2) Uncontrolled pain Current Visit: Yes Status: Resolved Plan to address problem: Controlled on Percocet 2 tabs q6hr prn (3) Rh negative status during Current Visit: Yes Status: Acute Qualifiers: Trimester: third trimester Qualified Code(s): O26.893 - Other specified related conditions, third trimester; Z67.91 - Unspecified blood type, Rh negative Plan to address problem: Rhogam administered Subjective - Subjective Date of service: 08/19/18 Principal diagnosis: POD #4; s/p Primary LTCS Interval history: see H&P, Consult Notes, OB Progress Notes, 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, 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 Patient reports: appetite normal, voiding normally, pain well controlled, flatus, bowel movement, ambulating normally, no dizzy ambulation : in NICU Objective - Vital Signs Latest vital signs: Vital Signs Temp Pulse Resp BP BP Pulse Ox 08/19/18 08:15 97.6 F 75 18 111/50 98 08/19/18 01:21 18 08/19/18 01:20 18 08/19/18 01:10 98.7 F 98 H 18 134/72 99 08/19/18 00:21 18 08/19/18 00:20 18 Intake and Output 08/18/18 08/19/18 08/19/18 23:59 07:59 15:59 Intake Total 360 Balance 360 Intake: Intake, Free Water 360 Other: # Voids Void 1 # Bowel Movements 1 - Exam Cardiovascular: Present: Regular rate Lungs: Present: Clear to auscultation, Normal air movement Abdomen: Present: normal appearance, soft Vulva: both: normal Uterus: Present: normal, firm, fundal height below umbilicus Incision: Present: normal, dry, intact, other (tg in place) Comments: scant lochia
--- NOTE | 2018-08-19 12:06 | Discharge Summary ---
Providers - Providers Date of Admission: 08/12/18 13:11 Date of discharge: 08/19/18 Attending physician: LINDA ALLRED MD 08/12/18 13:46 Consult to Physician [CONS] Routine Comment: Consulting Provider: KRISTAL MARROQUIN Physician Instructions: Reason For Exam: IUP@38WKS, IUGR, h/o syphilis this 08/18/18 13:49 Consult to Physician [CONS] Stat Comment: Consulting Provider: ALEIDA EGAN Physician Instructions: Reason For Exam: shortness of breath, fatigue, heart murmur Primary care physician: LINDA ALLRED MD Hospitalization Reason for admission: induction of labor Delivery: Procedure: primary low transverse Episiotomy: none Laceration: none Incision: normal, dry, intact, other (tg in place) Other procedures: none complications: none Discharge diagnosis: IUP at term delivered Boley baby: female Hospital course: Uncomplicated Condition at discharge: Stable Disposition: DC-01 TO HOME OR SELFCARE - Discharge Diagnoses (1) S/P primary low transverse Status: Acute (2) Rh negative status during Status: Acute Qualifiers: Trimester: third trimester Qualified Code(s): O26.893 - Other specified related conditions, third trimester; Z67.91 - Unspecified blood type, Rh negative Plan - Discharge Medications Prescriptions: Ibuprofen [Motrin] 800 mg PO Q8HR PRN #30 tablet PRN Reason: Pain, Moderate (4-6) oxyCODONE /ACETAMINOPHEN [Percocet 5/325] 1 tab PO Q4HR #20 tab - Provider Discharge Summary Activity: routine, no sex for 6 weeks, no heavy lifting 4 weeks, no strenuous exercise Diet: routine Instructions: routine Additional instructions: [] Smoking cessation referral if applicable(refer to patient education folder for contact #) [] Refer to [facility] Booklet Call your doctor immediately for: * Fever > 100.5 * Heavy vaginal bleeding ( >1 pad per hour) * Severe persistent headache * Shortness of breath * Reddened, hot, painful area to leg or breast * Drainage or odor from incision. * Keep incision clean and dry at all times and follow doctor's instructions regarding bathing/showering - Follow up plan Follow up: LINDA ALLRED MD [Primary Care Provider] - 08/23/18 (Follow up at [facility] on 08/23/18 for tg removal)
--- NOTE | 2018-08-19 12:36 | Event Note ---
Date: 08/19/18 Patient is being discharge today will do outpt followup
[2018-08-19 16:26] VITALS: BP 112/50
== END 2018-08-19 16:27 | disposition home or self-care (01) | DRG 765 ==
LOC: TRG 12:52 → LD 13:11 → OB 08-15 05:30
PROVIDERS: ADMIT Obstetrics & Gynecology; ATTEND Obstetrics & Gynecology
PROC: 10D00Z1 Extraction of Products of Conception, Low, Open Approach (ICD-10-PCS; principal; 2018-08-15)
PROC: 3E0334Z Introduction of Serum, Toxoid and Vaccine into Peripheral Vein, Percutaneous Approach (ICD-10-PCS; 2018-08-15)
DX: O36.5930 Maternal care for other known or suspected poor fetal growth, third trimester, not applicable or unspecified (principal); O41.03X0 Oligohydramnios, third trimester, not applicable or unspecified; O98.12 Syphilis complicating childbirth; O99.62 Diseases of the digestive system complicating childbirth; K21.9 Gastro-esophageal reflux disease without esophagitis; O99.214 Obesity complicating childbirth; E66.9 Obesity, unspecified; O76 Abnormality in fetal heart rate and rhythm complicating labor and delivery; Z37.0 Single live birth; Z83.3 Family history of diabetes mellitus; Z82.49 Family history of ischemic heart disease and other diseases of the circulatory system; Z3A.38 38 weeks gestation of pregnancy; Z91.040 Latex allergy status; Z79.899 Other long term (current) drug therapy
CPT/HCPCS: 36415; 59200; 71046; 82803; 85014; 85018; 85027; 85461; 86592; 86593; 86780; 86850; 86870; 86900; 86901; 88307; 93005; 93010; G0378; J0330; J0690; J1885; J2270; J2405; J2590; J2704; J2765; J2790; J3010; J7030; J7120

== ENCOUNTER 2019-01-02 09:44 | Emergency (ER) | payer SELFPAY ==
[2019-01-02 09:53] VITALS: BP 108/58
--- NOTE | 2019-01-02 10:30 | Emergency Department Report ---
ED Female HPI - General Chief complaint: Urogenital-Female Stated complaint: DISCHARGE Time Seen by Provider: 01/02/19 10:14 Source: patient Mode of arrival: Ambulatory Limitations: No Limitations - History of Present Illness Initial comments: Ms. Denson is a 18 yo female with hx of hepatitis C who presents with vaginal irritation and fishy odor of vaginal discarhge. Denies fever or abdominal pelvic pain. Mild symptoms. No treatment attempted at home. She has a 4 month old female at the bedside. She has not breast-feeding. MD Complaint: vaginal discharge -: Gradual, days(s) (3) Location: labia Severity: mild Consistency: constant Improves with: none Worsens with: none Are you Now?: No - Related Data Previous Rx's Medication Instructions Recorded Last Taken Type Cyclobenzaprine HCl [Flexeril 5 MG 5 mg PO TID #14 tablet 07/13/15 Unknown Rx TAB] Ibuprofen [Motrin] 600 mg PO Q8H PRN #30 tablet 07/13/15 Unknown Rx traMADoL [Ultram 50 MG tab] 50 mg PO Q6HR PRN #14 tablet 07/16/16 Unknown Rx Acetaminophen [Tylenol] 325 mg PO Q6H #30 capsule 12/24/17 Unknown Rx Doxylamine Succinate/Vit B6 2 each PO QHS #30 tablet. 12/24/17 Unknown Rx [Nicky Mac 10-10 mg Tablet] Pnv No.95/Ferrous Fum/Folic AC 1 each PO DAILY #40 tablet 12/24/17 08/13/18 09:00 Rx [ Vitamin Tablet] Ibuprofen [Motrin] 800 mg PO Q8HR PRN #30 tablet 08/15/18 Unknown Rx oxyCODONE /ACETAMINOPHEN [Percocet 1 tab PO Q4HR #20 tab 08/15/18 Unknown Rx 5/325] Fluconazole [Diflucan TAB] 150 mg PO ONCE #1 tablet 01/02/19 Unknown Rx metroNIDAZOLE [Flagyl TAB] 500 mg PO Q12HR 7 Days #14 tab 01/02/19 Unknown Rx Allergies Allergy/AdvReac Type Severity Reaction Status Date / Time latex Allergy Severe Hives Verified 08/12/18 13:27 ED Review of Systems ROS: Stated complaint: DISCHARGE Other details as noted in HPI Constitutional: denies: fever, malaise ED Past Medical Hx - Past Medical History Hx Hypertension: No Hx Heart Attack/AMI: No Hx Congestive Heart Failure: No Hx Diabetes: No Hx Deep Vein Thrombosis: No Hx Liver Disease: No Hx Renal Disease: No Hx Sickle Cell Disease: No Hx Seizures: No Hx Asthma: No Hx COPD: No Hx HIV: No Additional medical history: HEP C - Surgical History Hx Pacemaker: No Hx Internal Defibrillator: No Additional Surgical History: Tonsillectomy - Social History Smoking Status: Never Smoker Substance Use Type: None - Medications Home Medications: Home Medications Medication Instructions Recorded Confirmed Last Taken Type Cyclobenzaprine HCl [Flexeril 5 MG 5 mg PO TID #14 tablet 07/13/15 08/14/18 Unknown Rx TAB] Ibuprofen [Motrin] 600 mg PO Q8H PRN #30 tablet 07/13/15 08/14/18 Unknown Rx traMADoL [Ultram 50 MG tab] 50 mg PO Q6HR PRN #14 tablet 07/16/16 08/14/18 Unknown Rx Acetaminophen [Tylenol] 325 mg PO Q6H #30 capsule 12/24/17 08/14/18 Unknown Rx Doxylamine Succinate/Vit B6 2 each PO QHS #30 tablet. 12/24/17 08/14/18 Unknown Rx [Diclegis Dr 10-10 mg Tablet] Pnv No.95/Ferrous Fum/Folic AC 1 each PO DAILY #40 tablet 12/24/17 08/14/18 08/13/18 09:00 Rx [ Vitamin Tablet] Ibuprofen [Motrin] 800 mg PO Q8HR PRN #30 tablet 08/15/18 Unknown Rx oxyCODONE /ACETAMINOPHEN [Percocet 1 tab PO Q4HR #20 tab 08/15/18 Unknown Rx 5/325] Fluconazole [Diflucan TAB] 150 mg PO ONCE #1 tablet 01/02/19 Unknown Rx metroNIDAZOLE [Flagyl TAB] 500 mg PO Q12HR 7 Days #14 tab 01/02/19 Unknown Rx ED Physical Exam - General Limitations: No Limitations General appearance: alert, in no apparent distress, other (appears comfortable with baby laying sleeping on her abdomen and chest) - Head Head exam: Present: atraumatic, normocephalic - Respiratory Respiratory exam: Absent: respiratory distress - GI/Abdominal GI/Abdominal exam: Present: soft. 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 Critical care attestation.: If time is entered above; I have spent that time in minutes in the direct care of this critically ill patient, excluding procedure time. ED Disposition Clinical Impression: Vaginitis Disposition: DC-01 TO HOME OR SELFCARE Is pt being admited?: No Does the pt Need Aspirin: No Condition: Stable Instructions: Vaginitis (ED) Prescriptions: Fluconazole [Diflucan TAB] 150 mg PO ONCE #1 tablet metroNIDAZOLE [Flagyl TAB] 500 mg PO Q12HR 7 Days #14 tab [facility] - [facility]5 Days
[2019-01-02 10:45] LABS: Bacteria,Urine 1+ /HPF (Negative); Bilirubin,Urine NEG (Negative); Blood,Urine NEG (Negative); Color,Urine Yellow (Yellow); Mucus,Urine FEW /HPF; Protein,Urine <15 mg/dL mg/dL (Negative); Urobilinogen,Urine < 2.0 mg/dL (<2.0)
[2019-01-02 10:48] LABS: HCG Qualitative,Urine Negative (Negative)
== END 2019-01-02 11:00 | disposition home or self-care (01) ==
LOC: ED 09:44
DX: N76.0 Acute vaginitis (principal)
CPT/HCPCS: 81001; 81025

== ENCOUNTER 2019-06-27 11:31 | Emergency (ER) | payer SELFPAY ==
[2019-06-27 11:46] VITALS: BP 105/53
[2019-06-27 13:18] LABS: Basophils # (Auto) 0.1 K/mm3 (0.0-0.1); Basophils % (Auto) 0.8 % (0.0-1.8); Eosinophils % (Auto) 0.5 % (0.0-4.3); Hematocrit 38.9 % (30.3-42.9); Hemoglobin 13.1 gm/dl (10.1-14.3); Lymphocytes # (Auto) 2.8 K/mm3 (1.2-5.4); Lymphocytes % (Auto) 36.2 % (13.4-35.0); Mean Corpuscular HGB Conc 34 % (30-34); Mean Corpuscular Volume 92 fl (79-97); Monocytes # (Auto) 0.4 K/mm3 (0.0-0.8); Monocytes % (Auto) 5.7 % (0.0-7.3); Platelet Count 342 K/mm3 (140-440); Red Blood Count 4.22 M/mm3 (3.65-5.03); Red Cell Distribution Width 13.9 % (13.2-15.2)
[2019-06-27 13:33] LABS: Bilirubin,Urine NEG (Negative); Blood,Urine NEG (Negative); Color,Urine Yellow (Yellow); Mucus,Urine 3+ /HPF; Protein,Urine <15 mg/dL mg/dL (Negative)
--- NOTE | 2019-06-27 15:28 | Emergency Department Report ---
ED Female HPI - General Chief complaint: Abdominal Pain Stated complaint: /ABD PAIN Time Seen by Provider: 06/27/19 14:35 Source: patient Mode of arrival: Ambulatory Limitations: No Limitations - History of Present Illness Initial comments: 19-year-old -[place] female that is 2 para 1 presents with a positive home test comes in complaining of lower abdominal pain x3 days. Patient admits to nausea and vomiting and vaginal bleeding. Patient also states she has had 3 loose stools. Patient admits to vaginal discharge with white thick with odor. Patient has not guarded care. Patient does admit to urinary frequency and urgency. Patient denies any alcohol smoking or smoking weed. Patient denies any fever chills. MD Complaint: pelvic pain Onset/Timin -: days(s) - Related Data Previous Rx's Medication Instructions Recorded Last Taken Type Cyclobenzaprine HCl [Flexeril 5 MG 5 mg PO TID #14 tablet 07/13/15 Unknown Rx TAB] Ibuprofen [Motrin] 600 mg PO Q8H PRN #30 tablet 07/13/15 Unknown Rx traMADoL [Ultram 50 MG tab] 50 mg PO Q6HR PRN #14 tablet 07/16/16 Unknown Rx Acetaminophen [Tylenol] 325 mg PO Q6H #30 capsule 12/24/17 Unknown Rx Doxylamine Succinate/Vit B6 2 each PO QHS #30 tablet. 12/24/17 Unknown Rx [Nicky Mac 10-10 mg Tablet] Pnv No.95/Ferrous Fum/Folic AC 1 each PO DAILY #40 tablet 12/24/17 08/13/18 09:00 Rx [ Vitamin Tablet] Ibuprofen [Motrin] 800 mg PO Q8HR PRN #30 tablet 08/15/18 Unknown Rx oxyCODONE /ACETAMINOPHEN [Percocet 1 tab PO Q4HR #20 tab 08/15/18 Unknown Rx 5/325] Fluconazole [Diflucan TAB] 150 mg PO ONCE #1 tablet 01/02/19 Unknown Rx Vit No.129/Iron/Folic 1 each PO QDAY #90 tablet 06/27/19 Unknown Rx [ Tablet] metroNIDAZOLE [Flagyl TAB] 500 mg PO Q12HR 7 Days #14 tab 06/27/19 Unknown Rx Allergies Allergy/AdvReac Type Severity Reaction Status Date / Time latex Allergy Severe Hives Verified 06/27/19 11:40 ED Review of Systems ROS: Stated complaint: /ABD PAIN Other details as noted in HPI ED Past Medical Hx - Past Medical History Previous Medical History?: Yes Hx Hypertension: No Hx Heart Attack/AMI: No Hx Congestive Heart Failure: No Hx Diabetes: No Hx Deep Vein Thrombosis: No Hx Liver Disease: No Hx Renal Disease: No Hx Sickle Cell Disease: No Hx Seizures: No Hx Asthma: No Hx COPD: No Hx HIV: No Additional medical history: HEP C - Surgical History Past Surgical History?: Yes Hx Pacemaker: No Hx Internal Defibrillator: No Additional Surgical History: Tonsillectomy - Social History Smoking Status: Current Every Day Smoker Substance Use Type: Alcohol - Medications Home Medications: Home Medications Medication Instructions Recorded Confirmed Last Taken Type Cyclobenzaprine HCl [Flexeril 5 MG 5 mg PO TID #14 tablet 07/13/15 08/14/18 Unknown Rx TAB] Ibuprofen [Motrin] 600 mg PO Q8H PRN #30 tablet 07/13/15 08/14/18 Unknown Rx traMADoL [Ultram 50 MG tab] 50 mg PO Q6HR PRN #14 tablet 07/16/16 08/14/18 Unknown Rx Acetaminophen [Tylenol] 325 mg PO Q6H #30 capsule 12/24/17 08/14/18 Unknown Rx Doxylamine Succinate/Vit B6 2 each PO QHS #30 tablet. 12/24/17 08/14/18 Unknown Rx [Nicky Mac 10-10 mg Tablet] Pnv No.95/Ferrous Fum/Folic AC 1 each PO DAILY #40 tablet 12/24/17 08/14/18 08/13/18 09:00 Rx [ Vitamin Tablet] Ibuprofen [Motrin] 800 mg PO Q8HR PRN #30 tablet 08/15/18 Unknown Rx oxyCODONE /ACETAMINOPHEN [Percocet 1 tab PO Q4HR #20 tab 08/15/18 Unknown Rx 5/325] Fluconazole [Diflucan TAB] 150 mg PO ONCE #1 tablet 01/02/19 Unknown Rx Vit No.129/Iron/Folic 1 each PO QDAY #90 tablet 06/27/19 Unknown Rx [ Tablet] metroNIDAZOLE [Flagyl TAB] 500 mg PO Q12HR 7 Days #14 tab 06/27/19 Unknown Rx ED Physical Exam - General Limitations: No Limitations ED Course Vital Signs 06/27/19 11:45 Temperature 98.2 F Pulse Rate 62 Respiratory 17 Rate Blood Pressure 105/53 O2 Sat by Pulse 100 Oximetry ED Medical Decision Making - Lab Data Result diagrams: 06/27/19 11:54 - Radiology Data Radiology results: report reviewed Referring Physician:ALEXANDER MCMAHONPatient Name:DIXIE DEWITTPatient ID:[id number] of :[id number]:FemaleAccession:[id number] Date:[id number] Status:Finalized Findings [facility] [address] [place] [address] Ultrasound Report Signed Patient: DIXIE DEWITT MR#: [id number] : 2000 Acct:[id number] Age/Sex: 19 / F ADM Date: 06/27/19 Loc: ED Attending Dr: Ordering Physician: FELIPE JI Date of Service: 06/27/19 Procedure(s): US OB <= 14 weeks fetus Accession Number(s): [id number] cc: FELIPE JI TRANSABDOMINAL OB PELVIC ULTRASOUND INDICATION / CLINICAL INFORMATION: Pelvic pain/cramping. COMPARISON: None available. FINDINGS: There is an intrauterine gestational sac with a pole. The estimated gestational age is 8 weeks 1 day by crown-rump length. The EDC is 02/05/2020. The heart rate is 166 bpm. There is a small area of implantation hemorrhage along the inferior aspect of the sac, measuring 2.1 cm in greatest dimension. The left ovary measures 3.5 x 2.7 x 4.1 cm and contains a 2.4 cm corpus luteal cyst. The right ovary measures 3.2 x 1.7 x 3.0 cm. There is normal blood flow to both ovaries on Doppler exam. There is a small amount of free fluid in the cul-de-sac. I do not identify an extr aovarian mass. IMPRESSION: 1. Single viable 8 week 1 day intrauterine . Small area of implantation hemorrhage. 2. 2.4 cm corpus luteal cyst in the left ovary. Signer Name: Tophre Rees MD Signed: 06/27/2019 3:48 PM Workstation Name: [id number] Transcribed By: RT Dictated By: Topher Rees MD Electronically Authenticated By: Topher Rees MD Signed Date/Time: 06/27/198 DD/ 44 TD/TT: - Medical Decision Making 19-year-old -[place] female that is 2 para 1 presents with a positive home test comes in complaining of lower abdominal pain x3 days. Patient admits to nausea and vomiting and vaginal bleeding. Patient also states she has had 3 loose stools. Patient admits to vaginal discharge with white thick with odor. Patient has not guarded care. Patient does admit to urinary frequency and urgency. Patient denies any alcohol smoking or smoking weed. Patient denies any fever chills. Ultrasound shows an 8-week 1 day intrauterine gestation with a's small implantation hemorrhage. Patient is to follow-up with an [facility]. Take Tylenol as needed for pain management. You will be treated for bacterial vaginosis. Complete antibiotics as prescribed. Critical care attestation.: If time is entered above; I have spent that time in minutes in the direct care of this critically ill patient, excluding procedure time. ED Disposition Clinical Impression: Bacterial vaginosis in Qualifiers: Weeks of gestation: 8 weeks Qualified Code(s): Z3A.08 - 8 weeks gestation of Disposition: DC-01 TO HOME OR SELFCARE Is pt being admited?: No Does the pt Need Aspirin: No Condition: Stable Instructions: Abdominal Pain (ED), Bacterial Vaginosis (ED) Additional Instructions: Complete antibiotics for your bacterial vaginosis. You are 8 weeks and 1 day p regnant. I have given you a prescription for vitamins. Follow-up with an OB provider in the next 3 to 5 days. Prescriptions: metroNIDAZOLE [Flagyl TAB] 500 mg PO Q12HR 7 Days #14 tab Vit No.129/Iron/Folic [ Tablet] 1 each PO QDAY #90 tablet Referrals: PRIMARY CARE, [Primary Care Provider] - 3-5 Days [facility] [Provider Group] - 3-5 Days [facility] [Provider Group] - 3-5 Days Forms: STI Treatment and Prevention
--- NOTE | 2019-06-27 15:52 | Ultrasound Report ---
TRANSABDOMINAL OB PELVIC ULTRASOUND INDICATION / CLINICAL INFORMATION: Pelvic pain/cramping. COMPARISON: None available. FINDINGS: There is an intrauterine gestational sac with a pole. The estimated gestational age is 8 weeks 1 day by crown-rump length. The EDC is 02/05/2020. The heart rate is 166 bpm. There is a small area of implantation hemorrhage along the inferior aspect of the sac, measuring 2.1 cm in greatest di mension. The left ovary measures 3.5 x 2.7 x 4.1 cm and contains a 2.4 cm corpus luteal cyst. The right ovary measures 3.2 x 1.7 x 3.0 cm. There is normal blood flow to both ovaries on Doppler exam. There is a s mall amount of free fluid in the cul-de-sac. I do not identify an extraovarian mass. IMPRESSION: 1. Single viable 8 week 1 day intrauterine . Small area of implantation hemorrhage. 2. 2.4 cm corpus luteal cyst in the left ovary. Signer Name: Topher Rees MD Signed: 06/27/2019 3:48 PM Workstation Name: [id number]
== END 2019-06-27 16:41 | disposition home or self-care (01) ==
LOC: ED 11:31
DX: O23.591 Infection of other part of genital tract in pregnancy, first trimester (principal); B96.89 Other specified bacterial agents as the cause of diseases classified elsewhere; F17.200 Nicotine dependence, unspecified, uncomplicated; Z3A.08 8 weeks gestation of pregnancy; Z90.89 Acquired absence of other organs; Z79.899 Other long term (current) drug therapy; Z79.1 Long term (current) use of non-steroidal anti-inflammatories (NSAID); Z88.8 Allergy status to other drugs, medicaments and biological substances
CPT/HCPCS: 36415; 76801; 81001; 84702; 85025; 86900; 86901; 87210; 87591

== ENCOUNTER 2019-11-14 18:27 | Outpatient (CLI) | payer SELFPAY ==
[2019-11-14 19:38] VITALS: BP 97/47
[2019-11-14] MEDS ORDERED: MORPHINE 2 MG/1 ML INJ IM ONE (21:19)
== END 2019-11-14 23:24 | disposition home or self-care (01) ==
LOC: TRG 18:27 → APU 18:28 → TRG 23:24
PROVIDERS: ATTEND Obstetrics & Gynecology
DX: O26.892 Other specified pregnancy related conditions, second trimester (principal); R10.9 Unspecified abdominal pain; O60.02 Preterm labor without delivery, second trimester; Z3A.26 26 weeks gestation of pregnancy
CPT/HCPCS: 59025; 96372; J2270

== ENCOUNTER 2020-01-21 20:22 | Outpatient (CLI) | payer MEDICAID ==
[2020-01-21 20:58] VITALS: BP 109/64
[2020-01-21] MEDS ORDERED: LACTATED RINGERS 1,000 ML IV ONE (21:15)
[2020-01-21 21:26] LABS: Bilirubin,Urine NEG (Negative); Blood,Urine NEG (Negative); Color,Urine Yellow (Yellow); Protein,Urine <15 mg/dL mg/dL (Negative); Urobilinogen,Urine < 2.0 mg/dL (<2.0); WBC,Urine < 1.0 /HPF (0.0-6.0)
[2020-01-21] MEDS ORDERED: ACETAMINOPHEN W/CODEINE 300-30 MG TAB PO ONE (22:15)
== END 2020-01-21 22:05 | disposition home or self-care (01) ==
LOC: TRG 20:22 → APU 20:49 → TRG 22:05
PROVIDERS: ATTEND Obstetrics & Gynecology
DX: O26.893 Other specified pregnancy related conditions, third trimester (principal); R07.81 Pleurodynia; Z3A.36 36 weeks gestation of pregnancy
CPT/HCPCS: 59025; 81001

== ENCOUNTER 2020-05-19 18:36 | Emergency (ER) | payer MEDICAID ==
--- NOTE | 2020-05-19 19:36 | Event Note ---
ED Screening Note Date of service: 05/19/20 Time: 19:36 ED Screening Note: Patient complains of mid/lower abdominal pain starting about 1 hour ago Denies urinary symptoms This initial assessment/diagnostic orders/clinical plan/treatment(s) is/are subject to change based on patients health status, clinical progression and re- assessment by fellow clinical providers in the ED. Further treatment and workup at subsequent clinical providers discretion. Patient/guardian urged not to elope from the ED as their condition may be serious if not clinically assessed and managed. Initial orders include: Labs
[2020-05-19 19:37] VITALS: BP 112/60
[2020-05-19 19:53] LABS: Basophils # (Auto) 0.1 K/mm3 (0.0-0.1); Basophils % (Auto) 0.4 % (0.0-1.8); Eosinophils # (Auto) 0.1 K/mm3 (0.0-0.4); Eosinophils % (Auto) 0.6 % (0.0-4.3); Hematocrit 32.7 % (30.3-42.9); Hemoglobin 10.3 gm/dl (10.1-14.3); Lymphocytes # (Auto) 1.9 K/mm3 (1.2-5.4); Lymphocytes % (Auto) 13.4 % (13.4-35.0); Mean Corpuscular HGB Conc 31 % (30-34); Mean Corpuscular Volume 75 fl (79-97); Monocytes # (Auto) 0.5 K/mm3 (0.0-0.8); Monocytes % (Auto) 3.7 % (0.0-7.3); Platelet Count 405 K/mm3 (140-440); Red Blood Count 4.33 M/mm3 (3.65-5.03); Red Cell Distribution Width 18.1 % (13.2-15.2)
[2020-05-19 20:00] LABS: Bilirubin,Urine NEG (Negative); Blood,Urine NEG (Negative); Color,Urine Yellow (Yellow); Mucus,Urine 3+ /HPF
[2020-05-19] MEDS ORDERED: SODIUM CHLORIDE 0.9% 1000 ML 1,000 ML IV ONE (20:09)
[2020-05-19] MEDS ORDERED: MORPHINE 4 MG/1 ML INJ IV ONE (20:09)
[2020-05-19] MEDS ORDERED: ONDANSETRON 4 MG/2 ML INJ IV ONE (20:09)
[2020-05-19 20:14] LABS: Alanine Aminotransferase 25 units/L (7-56); Albumin 4.6 g/dL (3.9-5); BUN/Creatinine Ratio 13; Blood Urea Nitrogen 9 mg/dL (7-17); Calcium 9.2 mg/dL (8.4-10.2); Hemolysis Index 4
[2020-05-19] MEDS ORDERED: POTASSIUM CHLORIDE ER 20 MEQ TAB PO ONE (20:19)
--- NOTE | 2020-05-19 20:26 | Emergency Department Report ---
ED Abdominal Pain HPI - General Chief Complaint: Abdominal Pain Stated Complaint: ABD PAIN Time Seen by Provider: 05/19/20 19:36 Source: patient Mode of arrival: Ambulatory Limitations: No Limitations - History of Present Illness Initial Comments: Patient is a 19-year-old female presents emergency room with complaints of abdominal pain that began 1 hour prior to arrival. She states that the abdominal pain is right-sided and suprapubic. She states that she began having nausea and vomiting. She denies any diarrhea, dysuria, urinary frequency, odor to the urine, dark urine, back pain, vaginal discharge, vaginal itching, vaginal odor, vaginal burning, hematemesis, hematochezia, melena. She denies any past medical history. She has allergy to latex. Last menstrual cycle 05/05/2020. She states her only past abdominal surgical history of x2. - Related Data Previous Rx's Medication Instructions Recorded Last Taken Type Cyclobenzaprine HCl [Flexeril 5 MG 5 mg PO TID #14 tablet 07/13/15 Unknown Rx TAB] Ibuprofen [Motrin] 600 mg PO Q8H PRN #30 tablet 07/13/15 Unknown Rx traMADoL [Ultram 50 MG tab] 50 mg PO Q6HR PRN #14 tablet 07/16/16 Unknown Rx Acetaminophen [Tylenol] 325 mg PO Q6H #30 capsule 12/24/17 Unknown Rx Doxylamine Succinate/Vit B6 2 each PO QHS #30 tablet. 12/24/17 Unknown Rx [Diclegis Dr 10-10 mg Tablet] Pnv No.95/Ferrous Fum/Folic AC 1 each PO DAILY #40 tablet 12/24/17 08/13/18 09:00 Rx [ Vitamin Tablet] Ibuprofen [Motrin] 800 mg PO Q8HR PRN #30 tablet 08/15/18 Unknown Rx oxyCODONE /ACETAMINOPHEN [Percocet 1 tab PO Q4HR #20 tab 08/15/18 Unknown Rx 5/325] Fluconazole (Nf) [Diflucan TAB] 150 mg PO ONCE #1 tablet 01/02/19 Unknown Rx Vit No.129/Iron/Folic 1 each PO QDAY #90 tablet 06/27/19 Unknown Rx [ Tablet] metroNIDAZOLE [Flagyl TAB] 500 mg PO Q12HR 7 Days #14 tab 06/27/19 Unknown Rx Ibuprofen [Motrin Ib] 200 mg PO 4XD PRN #60 capsule 02/09/20 Unknown Rx Oxycodone HCl/Acetaminophen 1 each PO BID PRN #20 tablet 02/09/20 Unknown Rx [Oxycodon-Acetaminophen 2.5-325] Allergies Allergy/AdvReac Type Severity Reaction Status Date / Time latex Allergy Severe Hives Verified 06/27/19 11:40 ED Review of Systems ROS: Stated complaint: ABD PAIN Other details as noted in HPI Comment: All other systems reviewed and negative ED Past Medical Hx - Past Medical History Previous Medical History?: No Hx Hypertension: No Hx Heart Attack/AMI: No Hx Congestive Heart Failure: No Hx Diabetes: No Hx Deep Vein Thrombosis: No Hx Liver Disease: No Hx Renal Disease: No Hx Sickle Cell Disease: No Hx Seizures: No Hx Asthma: No Hx COPD: No Hx HIV: No Additional medical history: HEP C - Surgical History Past Surgical History?: Yes Hx Pacemaker: No Hx Internal Defibrillator: No Additional Surgical History: Tonsillectomy. x1 - Social History Smoking Status: Current Every Day Smoker Substance Use Type: None - Medications Home Medications: Home Medications Medication Instructions Recorded Confirmed Last Taken Type Cyclobenzaprine HCl [Flexeril 5 MG 5 mg PO TID #14 tablet 07/13/15 02/10/20 Unknown Rx TAB] Ibuprofen [Motrin] 600 mg PO Q8H PRN #30 tablet 07/13/15 02/10/20 Unknown Rx traMADoL [Ultram 50 MG tab] 50 mg PO Q6HR PRN #14 tablet 07/16/16 02/10/20 Unknown Rx Acetaminophen [Tylenol] 325 mg PO Q6H #30 capsule 12/24/17 02/10/20 Unknown Rx Doxylamine Succinate/Vit B6 2 each PO QHS #30 tablet. 12/24/17 02/10/20 Unknown Rx [Diclegirichie Mac 10-10 mg Tablet] Pnv No.95/Ferrous Fum/Folic AC 1 each PO DAILY #40 tablet 12/24/17 02/10/20 08/13/18 09:00 Rx [ Vitamin Tablet] Ibuprofen [Motrin] 800 mg PO Q8HR PRN #30 tablet 08/15/18 02/10/20 Unknown Rx oxyCODONE /ACETAMINOPHEN [Percocet 1 tab PO Q4HR #20 tab 08/15/18 02/10/20 Unknown Rx 5/325] Fluconazole (Nf) [Diflucan TAB] 150 mg PO ONCE #1 tablet 01/02/19 02/10/20 Unknown Rx Vit No.129/Iron/Folic 1 each PO QDAY #90 tablet 06/27/19 02/10/20 Unk nown Rx [ Tablet] metroNIDAZOLE [Flagyl TAB] 500 mg PO Q12HR 7 Days #14 tab 06/27/19 02/10/20 Unknown Rx Ibuprofen [Motrin Ib] 200 mg PO 4XD PRN #60 capsule 02/09/20 Unknown Rx Oxycodone HCl/Acetaminophen 1 each PO BID PRN #20 tablet 02/09/20 Unknown Rx [Oxycodon-Acetaminophen 2.5-325] ED Physical Exam - General Limitations: No Limitations General appearance: alert, in no apparent distress - Head Head exam: Present: atraumatic, normocephalic - Eye Eye exam: Present: normal appearance - ENT ENT exam: Present: mucous membranes moist - Respiratory Respiratory exam: Present: normal lung sounds bilaterally. Absent: respiratory distress, wheezes, rales, rhonchi, stridor, chest wall tenderness, accessory muscle use, decreased breath sounds, prolonged expiratory - Cardiovascular Cardiovascular Exam: Present: regular rate, normal rhythm, normal heart sounds. Absent: systolic murmur, diastolic murmur, rubs, gallop - GI/Abdominal GI/Abdominal exam: Present: soft, tenderness (RUQ, RLQ, suprapubic), guarding (voluntary), normal bowel sounds, other (well healed horizontal surgical incision present to the surapubic region). Absent: distended, rebound, rigid - Neurological Exam Neurological exam: Present: alert, oriented X3 - Psychiatric Psychiatric exam: Present: normal affect, normal mood - Skin Skin exam: Present: warm, dry, intact ED Course Vital Signs 05/19/20 19:35 Temperature 98.3 F Pulse Rate 76 Respiratory 17 Rate Blood Pressure 112/60 O2 Sat by Pulse 100 Oximetry ED Medical Decision Making - Lab Data Result diagrams: 05/19/20 19:43 05/19/20 19:43 Lab Results 05/19/20 05/19/20 05/19/20 Range/Units 19:43 19:43 19:43 WBC 14.1 H (4.5-11.0) K/mm3 RBC 4.33 (3.65-5.03) M/mm3 Hgb 10.3 (10.1-14.3) gm/dl Hct 32.7 (30.3-42.9) % MCV 75 L (79-97) fl MCH 24 L (28-32) pg MCHC 31 (30-34) % RDW 18.1 H (13.2-15.2) % Plt Count 405 (140-440) K/mm3 Lymph % (Auto) 13.4 (13.4-35.0) % [place] % (Auto) 3.7 (0.0-7.3) % Eos % (Auto) 0.6 (0.0-4.3) % Baso % (Auto) 0.4 (0.0-1.8) % Lymph # (Auto) 1.9 (1.2-5.4) K/mm3 [place] # (Auto) 0.5 (0.0-0.8) K/mm3 Eos # (Auto) 0.1 (0.0-0.4) K/mm3 Baso # (Auto) 0.1 (0.0-0.1) K/mm3 Seg Neutrophils % 81.9 H (40.0-70.0) % Seg Neutrophils # 11.5 H (1.8-7.7) K/mm3 Sodium 134 L (137-145) mmol/L Potassium 3.4 L (3.6-5.0) mmol/L Chloride 100.0 (98-107) mmol/L Carbon Dioxide 25 (22-30) mmol/L Anion Gap 12 mmol/L BUN 9 (7-17) mg/dL Creatinine 0.7 (0.6-1.2) mg/dL Estimated GFR > 60 ml/min BUN/Creatinine Ratio 13 % Glucose 84 (65-100) mg/dL Calcium 9.2 (8.4-10.2) mg/dL Total Bilirubin 0.80 (0.1-1.2) mg/dL AST 26 (5-40) units/L ALT 25 (7-56) units/L Alkaline Phosphatase 58 (35-129) units/L Total Protein 7.2 (6.3-8.2) g/dL Albumin 4.6 (3.9-5) g/dL Albumin/Globulin Ratio 1.8 % Lipase 10 L (13-60) units/L HCG, Qual Negative (Negative) Urine Color (Yellow) Urine Turbidity (Clear) Urine pH (5.0-7.0) Ur Specific [place] (1.003-1.030) Urine Protein (Negative) mg/dL Urine Glucose (UA) (Negative) mg/dL Urine Ketones (Negative) mg/dL Urine Blood (Negative) Urine Nitrite (Negative) Urine Bilirubin (Negative) Urine Urobilinogen (<2.0) mg/dL Ur Leukocyte Esterase (Negative) Urine WBC (Auto) (0.0-6.0) /HPF Urine RBC (Auto) (0.0-6.0) /HPF U Epithel Cells (Auto) (0-13.0) /HPF Urine Mucus /HPF 05/19/20 Range/Units 19:45 WBC (4.5-11.0) K/mm3 RBC (3.65-5.03) M/mm3 Hgb (10.1-14.3) gm/dl Hct (30.3-42.9) % MCV (79-97) fl MCH (28-32) pg MCHC (30-34) % RDW (13.2-15.2) % Plt Count (140-440) K/mm3 Lymph % (Auto) (13.4-35.0) % [place] % (Auto) (0.0-7.3) % Eos % (Auto) (0.0-4.3) % Baso % (Auto) (0.0-1.8) % Lymph # (Auto) (1.2-5.4) K/mm3 [place] # (Auto) (0.0-0.8) K/mm3 Eos # (Auto) (0.0-0.4) K/mm3 Baso # (Auto) (0.0-0.1) K/mm3 Seg Neutrophils % (40.0-70.0) % Seg Neutrophils # (1.8-7.7) K/mm3 Sodium (137-145) mmol/L Potassium (3.6-5.0) mmol/L Chloride (98-107) mmol/L Carbon Dioxide (22-30) mmol/L Anion Gap mmol/L BUN (7-17) mg/dL Creatinine (0.6-1.2) mg/dL Estimated GFR ml/min BUN/Creatinine Ratio % Glucose (65-100) mg/dL Calcium (8.4-10.2) mg/dL Total Bilirubin (0.1-1.2) mg/dL AST (5-40) units/L ALT (7-56) units/L Alkaline Phosphatase (35-129) units/L Total Protein (6.3-8.2) g/dL Albumin (3.9-5) g/dL Albumin/Globulin Ratio % Lipase (13-60) units/L HCG, Qual (Negative) Urine Color Yellow (Yellow) Urine Turbidity Slightly-cloudy (Clear) Urine pH 5.0 (5.0-7.0) Ur Specific [place] 1.028 (1.003-1.030) Urine Protein 30 mg/dl (Negative) mg/dL Urine Glucose (UA) Neg (Negative) mg/dL Urine Ketones Tr (Negative) mg/dL Urine Blood Neg (Negative) Urine Nitrite Neg (Negative) Urine Bilirubin Neg (Negative) Urine Urobilinogen 2.0 (<2.0) mg/dL Ur Leukocyte Esterase Tr (Negative) Urine WBC (Auto) 7.0 H (0.0-6.0) /HPF Urine RBC (Auto) 2.0 (0.0-6.0) /HPF U Epithel Cells (Auto) 18.0 H (0-13.0) /HPF Urine Mucus 3+ /HPF - Medical Decision Making Patient is a 19-year-old female presents emergency room with complaints of abdom inal pain that began 1 hour prior to arrival. She states that the abdominal pain is right-sided and suprapubic. She states that she began having nausea and vomiting. She denies any diarrhea, dysuria, urinary frequency, odor to the urine, dark urine, back pain, vaginal discharge, vaginal itching, vaginal odor, vaginal burning, hematemesis, hematochezia, melena. She denies any past medical history. She has allergy to latex. Last menstrual cycle 05/05/2020. She states her only past abdominal surgical history of x2. vitals are normal. on exam:RUQ, RLQ, suprapubic, voluntary guarding, no rigidity, no peritoneal signs. Labs with elevated white blood cell count of 14,000. UA shows very small amount of bacteria, there are many epithelial cells, this could be due to contamination, she is not having urinary symptoms. Advised patient that we would place IV give her medications and order a CT scan to rule out any intra- abdominal pathology. I was advised by nurse that patient did not want to have IV due to being afraid of needles and asked if I would speak with pt again. I went to speak with patient again in exam room to discuss the need for having a contrast CT, when I went to exam room no one was present in the room, it appears patient has eloped from the emergency department. I attempted to call number on patient's chart and there was no answer. Critical care attestation.: If time is entered above; I have spent that time in minutes in the direct care of this critically ill patient, excluding procedure time. ED Disposition Clinical Impression: Hypokalemia Abdominal pain Qualifiers: Abdominal location: generalized Qualified Code(s): R10.84 - Generalized abdominal pain Nausea & vomiting Qualifiers: Vomiting type: unspecified Vomiting Intractability: non-intractable Qualified Code(s): R11.2 - Nausea with vomiting, unspecified Leukocytosis Qualifiers: Leukocytosis type: unspecified Qualified Code(s): D72.829 - Elevated white blood cell count, unspecified Disposition: Z-07 ELOPED Is pt being admited?: No Does the pt Need Aspirin: No Condition: Undetermined Instructions: Abdominal Pain (ED) Referrals: PRIMARY CARE, [Primary Care Provider] - 3-5 Days
== END 2020-05-19 20:20 | disposition left against medical advice (07) ==
LOC: ED 18:36
DX: E87.6 Hypokalemia (principal); D72.829 Elevated white blood cell count, unspecified; R10.2 Pelvic and perineal pain; R11.2 Nausea with vomiting, unspecified; F17.200 Nicotine dependence, unspecified, uncomplicated; Z90.89 Acquired absence of other organs; Z98.890 Other specified postprocedural states; Z79.1 Long term (current) use of non-steroidal anti-inflammatories (NSAID); Z79.899 Other long term (current) drug therapy; Z91.040 Latex allergy status
CPT/HCPCS: 36415; 80053; 81001; 83690; 84703; 85025

== ENCOUNTER 2020-09-16 22:14 | Emergency (ER) | payer MEDICAID | END 2020-09-17 00:42 | disposition left against medical advice (07) | LOC: ED 22:14 | DX: R06.02 Shortness of breath (principal); Z53.21 Procedure and treatment not carried out due to patient leaving prior to being seen by health care provider ==

== ENCOUNTER 2020-12-18 04:58 | Emergency (ER) | payer MEDICAID ==
[2020-12-18 05:07] VITALS: BP 117/72
--- NOTE | 2020-12-21 18:42 | Electrocardiograph Report ---
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
== END 2020-12-18 07:00 | disposition left against medical advice (07) ==
LOC: ED 04:58
DX: R07.89 Other chest pain (principal); Z53.21 Procedure and treatment not carried out due to patient leaving prior to being seen by health care provider
CPT/HCPCS: 93005